=== PATIENT | female | born 1945 | race Caucasian/White ===

== ENCOUNTER 2020-01-20 15:02 | Emergency (ER) | payer MEDICARE ==
[~2020-01-20] VITALS: Ht 167.6 cm; Wt 55.8 kg
[~2020-01-20 15:02] MED LIST: AMLODIPINE BESY10 MG PO; ASPIRIN CHEW81 MG PO; CEFTIN500 MG PO; HYDROCHLOROTHIA25 MG PO; LIPITOR20 MG PO; LISINOPRIL10 MG PO; PLAVIX75 MG PO
--- OUTSIDE RECORDS SUMMARY | 2020-01-20 15:04 | XMS REPORT ---
Author Author [facility] Address Unknown Phone Unavailable Care Team Providers Care Automation Tester Name Role Phone Johanna FLOR Unavailable Unavailable Problems This patient has no known problems. Allergies, Adverse Reactions, Alerts This patient has no known allergies or adverse reactions. Medications This patient has no known medications. Results Test Description Test Time Test Comments Text Results Atomic Results Result Comments CARLOS NAIK IN OR/30 MINUTE INCREMENTS 2017-07-02 11:28:00 Reason for exam:->URETEROSCOPY FLUOROSCOPIC UNIT UTILIZED-NO INTERPRETATION REQUESTED. /APTT 2017-03-03 12:46:00 PROTIME (BEAKER) (test nneg=419) 13.9 seconds 11.7-14.7 INR (BEAKER) (test mnek=614) 1.1 <=5.9 PARTIAL THROMBOPLASTIN TIME (BEAKER) (test nfpr=575) 29.0 seconds 22.5-36.0 RECOMMENDED COUMADIN/WARFARIN INR THERAPY RANGESSTANDARD DOSE: 2.0 - 3.0 Inclu ton: PROPHYLAXIS for venous thrombosis, systemic embolization; TREATMENT for tamara ous thrombosis and/or pulmonary embolus.HIGH RISK: Target INR is 2.5-3.5 for pat ients with mechanical heart valves.PLATELET [id number] 12:24:00* Test Item Value Reference Range Comments PLATELET COUNT (BEAKER) (test qncg=704) 215 K/CU MM 150-430
[2020-01-20] MEDS ORDERED: METOPROLOL SUCC25 MG (15:25)
[2020-01-20] MEDS ORDERED: LASIX20 MG PO (16:13)
[2020-01-20] MEDS ORDERED: FUROSEMIDE INJ 10 MG/ML 4 ML VIAL IV NR (16:15)
--- NOTE | 2020-01-20 16:18 | Diagnostic Imaging Report ---
EXAMINATION: CXR 1 W - HOP INDICATION: Sob COMPARISON: None FINDINGS: TUBES and LINES: None. LUNGS: Lungs are mildly hyperinflated. Patchy opacities of the bilateral lung bases. Mild bilateral interstitial opacities. Mild bronchial wall thickening. PLEURA: No pleural effusion or pneumothorax. HEART AND MEDIASTINUM: The cardiomediastinal silhouette is unremarkable. There are atherosclerotic calcifications within the aorta. BONES AND SOFT TISSUES: No acute osseous lesion. Soft tissues are unremarkable. UPPER ABDOMEN: No free air under the diaphragm. IMPRESSION: Patchy opacities at the lung bases may represent pneumonia or or atelectasis in the appropriate clinical setting. Recommend follow-up chest radiograph in 6-8 weeks to assess for resolution. 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 Signed by: Dr. Dylan Sun MD on 01/20/2020 4:15 PM
[2020-01-20] MEDS ORDERED: FUROSEMIDE INJ 10 MG/ML 4 ML VIAL ONE (16:25)
[2020-01-20 16:32] VITALS: BP 157/70
== END 2020-01-20 16:40 | disposition left against medical advice (07) ==
LOC: FSED 15:02
DX: R06.09 Other forms of dyspnea (principal); I50.21 Acute systolic (congestive) heart failure; Z95.5 Presence of coronary angioplasty implant and graft; F17.210 Nicotine dependence, cigarettes, uncomplicated
CPT/HCPCS: 71045; 80053; 83880; 84484; 85025; 85379; 93005; 96374; 99284; J1940

== ENCOUNTER 2022-12-31 17:36 | Inpatient (IN) | payer MEDICARE ==
[~2022-12-31] VITALS: Ht 167.6 cm; Wt 55.8 kg
[~2022-12-31 17:36] MED LIST changes: +LASIX20 MG PO; +METOPROLOL SUCC25 MG
[2022-12-31 18:54] LABS: BASOPHILS % 0.2 % (0.0-1.0); EOSINOPHILS % 0.1 % (0.0-6.0); HEMATOCRIT 27.8 % (34.2-44.1); HEMOGLOBIN 8.1 g/dL (12.0-16.0); LYMPHOCYTES # (AUTO) 0.5 (1.0-3.2); LYMPHOCYTES % 3.4 % (18.0-39.1); MEAN CORPUSCULAR HEMOGLOBIN 27.5 pg (28-32); MEAN CORPUSCULAR HGB CONC 29.1 g/dL (31-35); MEAN CORPUSCULAR VOLUME 94.2 fL (81-99); NEUTROPHILS # (AUTO) 12.3 (2.1-6.9); NEUTROPHILS % 88.5 % (38.7-80.0); PLATELET COUNT 152 x10e3/uL (140-360); RED BLOOD COUNT 2.95 x10e6/uL (3.6-5.1)
[2022-12-31 18:59] LABS: INR 1.2; PROTHROMBIN TIME 15.7 seconds (11.9-14.5)
[2022-12-31 19:08] LABS: ALBUMIN 2.5 g/dL (3.5-5.0); ALBUMIN/GLOBULIN RATIO 0.8 (0.8-2.0); ALKALINE PHOSPHATASE 88 IU/L (40-150); BLOOD UREA NITROGEN 37 mg/dL (7-26); BUN/CREATININE RATIO 19 (6-25); CALCIUM 8.3 mg/dL (8.4-10.2); CARBON DIOXIDE 15 mmol/L (22-29); CHLORIDE 112 mmol/L (98-107); CREATININE, SERUM 1.91 mg/dL (0.57-1.11); GLUCOSE 123 mg/dL (74-118); SODIUM 138 mmol/L (136-145)
[2022-12-31 19:10] LABS: ALANINE AMINOTRANSFERASE < 6 IU/L (0-55)
[2022-12-31] MEDS ORDERED: ACETAMINOPHEN 325 MG TAB PO ONE (20:30)
[2022-12-31] MEDS ORDERED: ACETAMINOPHEN/CODEINE 300MG - 30MG TAB PO ONE (21:15)
[2022-12-31] MEDS ORDERED: FUROSEMIDE INJ 10 MG/ML 4 ML VIAL IV ONE (21:30)
[2022-12-31 22:05] LABS: CLARITY,URINE CLOUDY (CLEAR); COLOR,URINE YELLOW (YELLOW); KETONES,URINE NEGATIVE (NEGATIVE); LEUKOCYTE ESTERASE ,URINE 2+ (NEGATIVE); NITRITE,URINE POSITIVE (NEGATIVE); PROTEIN,URINE DIPSTICK 2+ (NEGATIVE); URINE UROBILINOGEN 0.2 mg/dL (0.2 - 1)
[2022-12-31 22:14] LABS: BACTERIA,URINE MANY /HPF; WBC,URINE (MAN) 21-50 /HPF (0-5)
[2022-12-31] MEDS ORDERED: Vancomycin IV 1 GM in SODIUM CHLORIDE 0.9% 250ML 250 ML IV SCH (22:30)
[2022-12-31] MEDS ORDERED: ONDANSETRON HCL INJ 2MG/ML 2ML 2 MG/ML VIAL IV PRN (22:30)
[2022-12-31 23:50] VITALS: BP 106/53
[2023-01-01] VITALS (8 sets, daily range): BP systolic 91–128; BP diastolic 44–58
[2023-01-01] MEDS: HYDROCODONE/APAP 5MG-325MG TAB PO PRN ×3 (01:24→16:39)
[2023-01-01] MEDS ORDERED: Morphine 2mg Syringe 2 MG/ML SYR IV ONE (04:30)
[2023-01-01 06:08] LABS: BASOPHILS % 0.3 % (0.0-1.0); EOSINOPHILS % 0.1 % (0.0-6.0); HEMATOCRIT 25.9 % (34.2-44.1); HEMOGLOBIN 7.6 g/dL (12.0-16.0); LYMPHOCYTES # (AUTO) 0.5 (1.0-3.2); MEAN CORPUSCULAR HEMOGLOBIN 27.3 pg (28-32); MEAN CORPUSCULAR HGB CONC 29.3 g/dL (31-35); MEAN CORPUSCULAR VOLUME 93.2 fL (81-99); MONOCYTES # (AUTO) 1.1 (0.2-0.8); NEUTROPHILS # (AUTO) 9.1 (2.1-6.9); NEUTROPHILS % 84.1 % (38.7-80.0); PLATELET COUNT 142 x10e3/uL (140-360); RED BLOOD COUNT 2.78 x10e6/uL (3.6-5.1); RED CELL DISTRIBUTION WIDTH 17.3 % (11.7-14.4)
[2023-01-01 06:31] LABS: ALBUMIN 2.4 g/dL (3.5-5.0); ALBUMIN/GLOBULIN RATIO 0.8 (0.8-2.0); ALKALINE PHOSPHATASE 92 IU/L (40-150); ANION GAP 16.2 mmol/L (8-16); BLOOD UREA NITROGEN 39 mg/dL (7-26); BUN/CREATININE RATIO 20 (6-25); CALCIUM 8.2 mg/dL (8.4-10.2); CARBON DIOXIDE 15 mmol/L (22-29); CHLORIDE 112 mmol/L (98-107); GLUCOSE 97 mg/dL (74-118); POTASSIUM 5.2 mmol/L (3.5-5.1); SODIUM 138 mmol/L (136-145)
[2023-01-01 06:49] LABS: ALANINE AMINOTRANSFERASE < 6 IU/L (0-55)
[2023-01-01] MEDS ORDERED: Vancomycin IV 1 GM in SODIUM CHLORIDE 0.9% 250ML 250 ML IV SCH (09:00)
[2023-01-01] MEDS ORDERED: FUROSEMIDE INJ 10 MG/ML 4 ML VIAL IV SCH (09:30)
[2023-01-01] MEDS ORDERED: ACETAMINOPHEN 325 MG TAB PO PRN (10:15)
[2023-01-01] MEDS ORDERED: ONDANSETRON HCL INJ 2MG/ML 2ML 2 MG/ML VIAL IV PRN (10:15)
[2023-01-01 11:15] LABS: % IRON SATURATION 3 % (15-50); IRON 10 ug/dL (50-170); TOTAL IRON BINDING CAPACITY 298 ug/dL (261-478); TRANSFERRIN 213 mg/dL (180-382)
[2023-01-01] MEDS: IRON SUCROSE 100 MG in SODIUM CHLORIDE 0.9% 100 ML IV SCH (12:33)
[2023-01-01] MEDS: MIDODRINE 2.5 MG TAB PO SCH ×2 (12:34→16:40)
[2023-01-01] MEDS ORDERED: SOD POLYSTYRENE SULFONATE SUSP 15 GM/60 ML BTL PO STA (15:54)
[2023-01-01] MEDS ORDERED: LACTULOSE SYRUP 20 GM/30 ML UDC PO ONE (16:30)
[2023-01-01] MEDS: BUMETANIDE INJ 0.25MG/ML 4ML VIAL IV SCH ×2 (16:39→22:16)
[2023-01-01] MEDS: DOXYCYCLINE HYCLATE TABLET 100 MG TAB PO SCH (16:39)
[2023-01-01] MEDS: COLLAGENASE 5 GM TUBE TP SCH (16:39)
[2023-01-01] MEDS: ENOXAPARIN 30 MG/0.3 ML SYR SC SCH (16:42)
[2023-01-01] MEDS ORDERED: CARVEDILOL 3.125 MG TAB PO SCH (17:00)
[2023-01-01] MEDS ORDERED: BUMETANIDE INJ 0.25MG/ML 4ML VIAL IV SCH (18:00)
[2023-01-01] MEDS ORDERED: ATORVASTATIN 40 MG TAB PO SCH (21:00)
[2023-01-01] MEDS: SODIUM BICARBONATE 650 MG TAB PO SCH (22:15)
[2023-01-01] MEDS: ATORVASTATIN 40 MG TAB PO SCH (22:16)
[2023-01-02] VITALS (8 sets, daily range): BP systolic 98–113; BP diastolic 40–51
[2023-01-02] MEDS: HYDROCODONE/APAP 5MG-325MG TAB PO PRN ×3 (01:58→11:40)
[2023-01-02] MEDS: BUMETANIDE INJ 0.25MG/ML 4ML VIAL IV SCH ×3 (05:50→21:27)
[2023-01-02 07:37] LABS: BASOPHILS % 0.3 % (0.0-1.0); EOSINOPHILS % 0.4 % (0.0-6.0); HEMATOCRIT 23.8 % (34.2-44.1); HEMOGLOBIN 7.3 g/dL (12.0-16.0); LYMPHOCYTES # (AUTO) 0.5 (1.0-3.2); LYMPHOCYTES % 7.8 % (18.0-39.1); MEAN CORPUSCULAR HGB CONC 30.7 g/dL (31-35); MEAN CORPUSCULAR VOLUME 91.2 fL (81-99); MONOCYTES # (AUTO) 0.8 (0.2-0.8); MONOCYTES % 10.8 % (4.4-11.3); NEUTROPHILS # (AUTO) 5.6 (2.1-6.9); NEUTROPHILS % 80.1 % (38.7-80.0); PLATELET COUNT 143 x10e3/uL (140-360); RED BLOOD COUNT 2.61 x10e6/uL (3.6-5.1); RED CELL DISTRIBUTION WIDTH 17.4 % (11.7-14.4)
[2023-01-02 08:15] LABS: ALBUMIN 2.1 g/dL (3.5-5.0); ALBUMIN/GLOBULIN RATIO 0.7 (0.8-2.0); ANION GAP 14.9 mmol/L (8-16); CHOL/HDL RATIO 5.1 (3.0-3.6); CREATININE, SERUM 1.93 mg/dL (0.57-1.11); POTASSIUM 3.9 mmol/L (3.5-5.1)
[2023-01-02 08:34] LABS: THYROID STIMULATING HORMONE 11.705 uIU/mL (0.350-4.940)
[2023-01-02] MEDS ORDERED: LOSARTAN POTASSIUM 25 MG TAB PO SCH (09:00)
[2023-01-02] MEDS: COLLAGENASE 5 GM TUBE TP SCH (09:07)
[2023-01-02] MEDS: CLOPIDOGREL BISULFATE 75 MG TAB PO SCH (09:07)
[2023-01-02] MEDS: DOXYCYCLINE HYCLATE TABLET 100 MG TAB PO SCH ×2 (09:07→16:34)
[2023-01-02] MEDS: SODIUM BICARBONATE 650 MG TAB PO SCH ×3 (09:07→21:27)
[2023-01-02] MEDS: ASPIRIN 81 MG ENTERIC COATED PO SCH (09:08)
[2023-01-02] MEDS: BALSAM PERU/CASTOR OIL 60 GM OINT...G. TP SCH (09:08)
[2023-01-02] MEDS: MIDODRINE 2.5 MG TAB PO SCH ×3 (09:08→16:35)
[2023-01-02] MEDS ORDERED: FLUCONAZOLE 100 MG TAB PO ONE (12:00)
[2023-01-02] MEDS: IRON SUCROSE 100 MG in SODIUM CHLORIDE 0.9% 100 ML IV SCH (13:35)
[2023-01-02] MEDS: ENOXAPARIN 30 MG/0.3 ML SYR SC SCH (16:34)
[2023-01-02] MEDS: ATORVASTATIN 40 MG TAB PO SCH (21:27)
[2023-01-03] VITALS (8 sets, daily range): BP systolic 89–122; BP diastolic 42–67
[2023-01-03] MEDS: HYDROCODONE/APAP 5MG-325MG TAB PO PRN ×3 (04:40→20:25)
[2023-01-03] MEDS: LEVOTHYROXINE SODIUM 75 MCG TAB PO SCH (06:15)
[2023-01-03] MEDS: BUMETANIDE INJ 0.25MG/ML 4ML VIAL IV SCH ×3 (06:15→22:32)
[2023-01-03 07:28] LABS: HEMATOCRIT 25.4 % (34.2-44.1); HEMOGLOBIN 7.7 g/dL (12.0-16.0)
[2023-01-03 08:01] LABS: ANION GAP 14.4 mmol/L (8-16); CALCIUM 8.2 mg/dL (8.4-10.2); CREATININE, SERUM 1.83 mg/dL (0.57-1.11); POTASSIUM 3.4 mmol/L (3.5-5.1)
[2023-01-03] MEDS: DOXYCYCLINE HYCLATE TABLET 100 MG TAB PO SCH ×2 (08:31→16:43)
[2023-01-03] MEDS: COLLAGENASE 5 GM TUBE TP SCH (08:32)
[2023-01-03] MEDS: ASPIRIN 81 MG ENTERIC COATED PO SCH (08:32)
[2023-01-03] MEDS: SODIUM BICARBONATE 650 MG TAB PO SCH ×3 (08:32→20:14)
[2023-01-03] MEDS: CLOPIDOGREL BISULFATE 75 MG TAB PO SCH (08:32)
[2023-01-03] MEDS: MIDODRINE 2.5 MG TAB PO SCH (08:32)
[2023-01-03] MEDS: BALSAM PERU/CASTOR OIL 60 GM OINT...G. TP SCH (08:34)
[2023-01-03] MEDS ORDERED: METOLAZONE 5 MG TAB PO ONE (10:30)
[2023-01-03] MEDS ORDERED: POTASSIUM CHLORIDE 20 MEQ TAB CR PO ONE (10:30)
[2023-01-03] MEDS: MIDODRINE HCL 5 MG TABLET PO SCH ×2 (11:59→16:43)
[2023-01-03] MEDS: IRON SUCROSE 100 MG in SODIUM CHLORIDE 0.9% 100 ML IV SCH (14:35)
[2023-01-03] MEDS: DOCUSATE SODIUM 100 MG CAP PO SCH (16:42)
[2023-01-03] MEDS: ENOXAPARIN 30 MG/0.3 ML SYR SC SCH (16:42)
[2023-01-03] MEDS: ATORVASTATIN 40 MG TAB PO SCH (20:14)
[2023-01-04] VITALS (8 sets, daily range): BP systolic 92–146; BP diastolic 49–71
[2023-01-04 06:13] LABS: BASOPHILS % 0.3 % (0.0-1.0); EOSINOPHILS # (AUTO) 0.2 (0.0-0.4); EOSINOPHILS % 2.8 % (0.0-6.0); HEMATOCRIT 25.4 % (34.2-44.1); HEMOGLOBIN 7.9 g/dL (12.0-16.0); LYMPHOCYTES # (AUTO) 0.7 (1.0-3.2); LYMPHOCYTES % 10.1 % (18.0-39.1); MEAN CORPUSCULAR HEMOGLOBIN 28.9 pg (28-32); MEAN CORPUSCULAR HGB CONC 31.1 g/dL (31-35); MONOCYTES # (AUTO) 0.9 (0.2-0.8); MONOCYTES % 13.8 % (4.4-11.3); NEUTROPHILS # (AUTO) 4.7 (2.1-6.9); NEUTROPHILS % 72.4 % (38.7-80.0); PLATELET COUNT 181 x10e3/uL (140-360); RED BLOOD COUNT 2.73 x10e6/uL (3.6-5.1); RED CELL DISTRIBUTION WIDTH 17.7 % (11.7-14.4)
[2023-01-04] MEDS: LEVOTHYROXINE SODIUM 75 MCG TAB PO SCH (06:22)
[2023-01-04 06:34] LABS: ANION GAP 16.2 mmol/L (8-16); CALCIUM 8.5 mg/dL (8.4-10.2); CREATININE, SERUM 1.65 mg/dL (0.57-1.11); POTASSIUM 3.2 mmol/L (3.5-5.1)
[2023-01-04] MEDS: BUMETANIDE INJ 0.25MG/ML 4ML VIAL IV SCH ×3 (06:43→21:47)
[2023-01-04] MEDS: CLOPIDOGREL BISULFATE 75 MG TAB PO SCH (09:42)
[2023-01-04] MEDS: DOCUSATE SODIUM 100 MG CAP PO SCH ×2 (09:42→17:15)
[2023-01-04] MEDS: SODIUM BICARBONATE 650 MG TAB PO SCH ×3 (09:42→21:49)
[2023-01-04] MEDS: MIDODRINE HCL 5 MG TABLET PO SCH ×3 (09:42→17:15)
[2023-01-04] MEDS: ASPIRIN 81 MG ENTERIC COATED PO SCH (09:42)
[2023-01-04] MEDS: COLLAGENASE 5 GM TUBE TP SCH (09:43)
[2023-01-04] MEDS: BALSAM PERU/CASTOR OIL 60 GM OINT...G. TP SCH (09:43)
[2023-01-04] MEDS: DOXYCYCLINE HYCLATE TABLET 100 MG TAB PO SCH ×2 (09:43→17:15)
[2023-01-04] MEDS ORDERED: METOLAZONE 5 MG TAB PO ONE (10:30)
[2023-01-04] MEDS: POTASSIUM CHLORIDE 20 MEQ TAB CR PO SCH ×2 (12:22→17:15)
[2023-01-04] MEDS: ENOXAPARIN 30 MG/0.3 ML SYR SC SCH (17:15)
[2023-01-04] MEDS: ATORVASTATIN 40 MG TAB PO SCH (21:48)
[2023-01-05] VITALS (7 sets, daily range): BP systolic 109–119; BP diastolic 45–78
[2023-01-05] MEDS: HYDROCODONE/APAP 5MG-325MG TAB PO PRN (02:21)
[2023-01-05 05:59] LABS: BASOPHILS % 0.2 % (0.0-1.0); EOSINOPHILS # (AUTO) 0.1 (0.0-0.4); EOSINOPHILS % 2.3 % (0.0-6.0); HEMATOCRIT 24.6 % (34.2-44.1); HEMOGLOBIN 7.6 g/dL (12.0-16.0); LYMPHOCYTES # (AUTO) 0.6 (1.0-3.2); LYMPHOCYTES % 11.5 % (18.0-39.1); MEAN CORPUSCULAR HEMOGLOBIN 27.4 pg (28-32); MEAN CORPUSCULAR HGB CONC 30.9 g/dL (31-35); MEAN CORPUSCULAR VOLUME 88.8 fL (81-99); MONOCYTES # (AUTO) 0.9 (0.2-0.8); MONOCYTES % 17.5 % (4.4-11.3); NEUTROPHILS # (AUTO) 3.6 (2.1-6.9); NEUTROPHILS % 68.1 % (38.7-80.0); PLATELET COUNT 150 x10e3/uL (140-360); RED BLOOD COUNT 2.77 x10e6/uL (3.6-5.1); RED CELL DISTRIBUTION WIDTH 17.5 % (11.7-14.4)
[2023-01-05] MEDS: BUMETANIDE INJ 0.25MG/ML 4ML VIAL IV SCH ×3 (06:00→21:52)
[2023-01-05] MEDS: LEVOTHYROXINE SODIUM 75 MCG TAB PO SCH (06:00)
[2023-01-05 06:18] LABS: ANION GAP 14.6 mmol/L (8-16); CALCIUM 8.9 mg/dL (8.4-10.2); CREATININE, SERUM 1.63 mg/dL (0.57-1.11); POTASSIUM 3.6 mmol/L (3.5-5.1)
[2023-01-05 08:14] LABS: EOSINOPHILS % (MANUAL) 2 % (0-7); LYMPHOCYTES % (MANUAL) 9 % (19-48); MONOCYTES % (MANUAL) 7 % (3.4-9.0); NEUTROPHILS % (MANUAL) 82 % (40-74); PLATELET ESTIMATE ADEQUATE; PLATELET MORPHOLOGY COMMENT NORMAL
[2023-01-05 08:15] LABS: RBC MORPHOLOGY COMMENT NORMAL
[2023-01-05] MEDS: MIDODRINE HCL 5 MG TABLET PO SCH ×3 (08:35→18:02)
[2023-01-05] MEDS: CLOPIDOGREL BISULFATE 75 MG TAB PO SCH (08:36)
[2023-01-05] MEDS: DOCUSATE SODIUM 100 MG CAP PO SCH ×2 (08:36→17:00)
[2023-01-05] MEDS: ASPIRIN 81 MG ENTERIC COATED PO SCH (08:36)
[2023-01-05] MEDS: COLLAGENASE 5 GM TUBE TP SCH (08:37)
[2023-01-05] MEDS: DOXYCYCLINE HYCLATE TABLET 100 MG TAB PO SCH ×2 (08:37→18:02)
[2023-01-05] MEDS: SODIUM BICARBONATE 650 MG TAB PO SCH (08:37)
[2023-01-05] MEDS: BALSAM PERU/CASTOR OIL 60 GM OINT...G. TP SCH (08:37)
[2023-01-05] MEDS ORDERED: ONDANSETRON HCL 4 MG ORAL DISINTEGRATING TAB PO PRN (10:15)
[2023-01-05] MEDS ORDERED: METOLAZONE 5 MG TAB PO ONE (11:30)
[2023-01-05] MEDS: ENOXAPARIN 30 MG/0.3 ML SYR SC SCH (18:02)
[2023-01-05] MEDS: ATORVASTATIN 40 MG TAB PO SCH (21:52)
[2023-01-06 04:00] VITALS: BP 101/43
[2023-01-06] MEDS: BUMETANIDE INJ 0.25MG/ML 4ML VIAL IV SCH ×2 (06:00→14:00)
[2023-01-06] MEDS: LEVOTHYROXINE SODIUM 75 MCG TAB PO SCH (06:05)
[2023-01-06 06:10] LABS: BASOPHILS % 0.5 % (0.0-1.0); EOSINOPHILS # (AUTO) 0.1 (0.0-0.4); EOSINOPHILS % 2.4 % (0.0-6.0); HEMATOCRIT 28.4 % (34.2-44.1); HEMOGLOBIN 8.6 g/dL (12.0-16.0); LYMPHOCYTES # (AUTO) 0.8 (1.0-3.2); LYMPHOCYTES % 13.9 % (18.0-39.1); MEAN CORPUSCULAR HEMOGLOBIN 27.5 pg (28-32); MEAN CORPUSCULAR HGB CONC 30.3 g/dL (31-35); MEAN CORPUSCULAR VOLUME 90.7 fL (81-99); MONOCYTES % 18.3 % (4.4-11.3); NEUTROPHILS # (AUTO) 3.6 (2.1-6.9); NEUTROPHILS % 64.5 % (38.7-80.0); PLATELET COUNT 146 x10e3/uL (140-360); RED BLOOD COUNT 3.13 x10e6/uL (3.6-5.1); RED CELL DISTRIBUTION WIDTH 18.4 % (11.7-14.4)
[2023-01-06 06:38] LABS: ANION GAP 15.6 mmol/L (8-16); CALCIUM 8.9 mg/dL (8.4-10.2); CREATININE, SERUM 1.5 mg/dL (0.57-1.11); POTASSIUM 3.6 mmol/L (3.5-5.1)
[2023-01-06 08:00] VITALS: BP 116/54
[2023-01-06 08:02] VITALS: BP 116/54
[2023-01-06] MEDS: CLOPIDOGREL BISULFATE 75 MG TAB PO SCH (09:38)
[2023-01-06] MEDS: DOXYCYCLINE HYCLATE TABLET 100 MG TAB PO SCH (09:38)
[2023-01-06] MEDS: ASPIRIN 81 MG ENTERIC COATED PO SCH (09:38)
[2023-01-06] MEDS: BALSAM PERU/CASTOR OIL 60 GM OINT...G. TP SCH (09:39)
[2023-01-06] MEDS: MIDODRINE HCL 5 MG TABLET PO SCH ×2 (09:39→12:37)
[2023-01-06] MEDS: DOCUSATE SODIUM 100 MG CAP PO SCH (09:49)
[2023-01-06] MEDS: COLLAGENASE 5 GM TUBE TP SCH (09:49)
[2023-01-06 09:51] LABS: ANISOCYTOSIS MODERATE; EOSINOPHILS % (MANUAL) 1 % (0-7); LYMPHOCYTES % (MANUAL) 8 % (19-48); MONOCYTES % (MANUAL) 22 % (3.4-9.0); NEUTROPHILS % (MANUAL) 68 % (40-74); PLATELET ESTIMATE ADEQUATE; PLATELET MORPHOLOGY COMMENT NORMAL; RBC MORPHOLOGY COMMENT ABNORMAL
[2023-01-06 09:52] LABS: HYPOCHROMASIA MODERATE
[2023-01-06] MEDS ORDERED: SYNTHROID75 MCG PO (11:12)
[2023-01-06] MEDS ORDERED: LASIX40 MG PO (11:12)
[2023-01-06] MEDS ORDERED: LEVOFLOXACIN250 MG PO (11:16)
[2023-01-06] MEDS ORDERED: ACIDOPHILUS1 EAC1 PO (11:16)
[2023-01-06 11:50] VITALS: BP 113/52
[2023-01-06] MEDS ORDERED: COLLAGENASE OINTMENT 30 GM TUBE TP SCH (12:00)
[2023-01-06] MEDS ORDERED: COLLAGENASE 5 GM TUBE TP SCH (13:00)
[2023-01-06 15:47] VITALS: BP 113/52
== END 2023-01-06 16:55 | disposition home or self-care (01) | DRG 698 ==
LOC: ER 17:43 → ERHOLD 22:41 → MED/SURG3 23:32
PROVIDERS: ADMIT Internal Medicine; ATTEND Internal Medicine
DX: T83.592A Infection and inflammatory reaction due to indwelling ureteral stent, initial encounter (principal); I50.43 Acute on chronic combined systolic (congestive) and diastolic (congestive) heart failure; I13.0 Hypertensive heart and chronic kidney disease with heart failure and stage 1 through stage 4 chronic kidney disease, or unspecified chronic kidney disease; E87.4 Mixed disorder of acid-base balance; N13.30 Unspecified hydronephrosis; D68.9 Coagulation defect, unspecified; L03.116 Cellulitis of left lower limb; L03.115 Cellulitis of right lower limb; N17.9 Acute kidney failure, unspecified; I47.20 Ventricular tachycardia, unspecified; E78.00 Pure hypercholesterolemia, unspecified; I25.10 Atherosclerotic heart disease of native coronary artery without angina pectoris; Z95.1 Presence of aortocoronary bypass graft; Z95.5 Presence of coronary angioplasty implant and graft; D63.8 Anemia in other chronic diseases classified elsewhere; E03.9 Hypothyroidism, unspecified; I73.9 Peripheral vascular disease, unspecified; E87.5 Hyperkalemia; Z96.0 Presence of urogenital implants; J44.9 Chronic obstructive pulmonary disease, unspecified; E87.6 Hypokalemia; E83.51 Hypocalcemia; R31.29 Other microscopic hematuria; N39.41 Urge incontinence; I48.0 Paroxysmal atrial fibrillation; Z79.01 Long term (current) use of anticoagulants; B96.1 Klebsiella pneumoniae [K. pneumoniae] as the cause of diseases classified elsewhere; D50.9 Iron deficiency anemia, unspecified; D17.79 Benign lipomatous neoplasm of other sites; K21.9 Gastro-esophageal reflux disease without esophagitis; R19.00 Intra-abdominal and pelvic swelling, mass and lump, unspecified site; Z53.29 Procedure and treatment not carried out because of patient's decision for other reasons; N18.32 Chronic kidney disease, stage 3b
CPT/HCPCS: 36415; 51700; 71045; 71046; 74018; 74176; 76770; 80048; 80053; 80061; 81001; 83540; 83880; 84443; 84466; 84484; 85014; 85018; 85025; 85610; 85730; 87040; 87071; 87086; 87186; 87205; 93005; 93306; 93925; 93970; 94799; 99252; 99284; J0696; J1650; J1756; J1940; J2270; J7050